=== PATIENT | male | born 1990 | race African-American/Black ===

== ENCOUNTER 2016-09-15 12:43 | Emergency (ER) | payer SELFPAY ==
[~2016-09-15] VITALS: Ht 177.8 cm; Wt 70.0 kg
[2016-09-15 12:53] VITALS: BP 158/82; PULSE 86; RESP 18; TEMP 98.1; O2SAT 97
[2016-09-15] MEDS ORDERED: SODIUM CHLORIDE 0.9% FLUSH 10 ML FLUSH IVF PRN (13:00)
--- NOTE | 2016-09-15 13:04 | PD ---
HPI Chief Complaint: Seizure Time Seen by Provider: 13:03 Travel History International Travel<30 days: No Contact w/Intl Traveler<30days: No Traveled to known affect area: No History of Present Illness HPI 26 year old male presents to the emergency department via EMS for evaluation after [place]. The patient states that he had history of febrile seizures as a child. He also states he had a seizure 3 years ago. He states he has never seen a neurologist or been on seizure medications. The patient states that it was a witnessed seizure. He does not know how long it lasted. The patient does report tongue biting. He is unsure of he had incontinence due to being wet from the beach. The patient reports headache, 4 out of 10 at this time. He denies any chest pain or shortness breath. No abdominal pain. No nausea or vomiting. No weakness. Patient reports no other medical problems. He is not currently on any medications. He does report drinking "a pint" of alcohol every 2-3 days. He also states that he smokes marijuana daily. He denies any IVDU. No fevers. No cough or congestion. Patient does report "a couple of uncles " that have history of seizures as well. He denies recently quitting alcohol. PFSH Past Medical History Seizures: Yes ?: Not Social History Alcohol Use: Yes (0.5 pints a day) Tobacco Use: Yes (0.5 ppd) Substance Use: Yes (THC daily if not weekly) Allergies-Medications (Allergen,Severity, Reaction): Coded Allergies: Amoxicillin (Verified Allergy, Unknown, 09/15/16) Review of Systems Except as stated in HPI: all other systems reviewed are Neg Physical Exam Narrative GENERAL: Well-nourished, well-developed male patient, afebrile. SKIN: Focused skin assessment warm/dry. HEAD: Normocephalic. Atraumatic. EYES: No scleral icterus. No injection or drainage. PERRLA. ENT: Mucosa pink and moist. No erythema or exudates. No uvular edema. No uvular , palatal, or tonsillar deviation. Airway patent. Nasal turbinates appear normal without nasal blood, purulent drainage or septal hematoma. NECK: Supple, trachea midline. No JVD or lymphadenopathy. Superficial laceration noted to tong as well as left inner lip. CARDIOVASCULAR: Regular rate and rhythm without murmurs, gallops, or rubs. RESPIRATORY: Breath sounds equal bilaterally. No accessory muscle use. Lungs sounds are clear to auscultation. GASTROINTESTINAL: Abdomen soft, non-tender, nondistended. MUSCULOSKELETAL: No cyanosis, or edema. Bilateral upper and lower extremity strength 5/5. All extremities are neurovascularly intact. BACK: Nontender without obvious deformity. No CVA tenderness. NEUROLOGICAL: Awake and alert. Cranial nerves II through XII intact. Motor and sensory grossly within normal limits. Five out of 5 muscle strength in all muscle groups. Normal speech. Data Data Last Documented VS Vital Signs Date Time Temp Pulse Resp B/P Pulse Ox O2 Delivery O2 Flow Rate FiO2 09/15/16 14:42 60 18 142/79 100 Room Air 09/15/16 13:15 2 09/15/16 12:53 98.1 Orders Complete Blood Count With Diff (09/15/16 12:59) Alcohol (Ethanol) (09/15/16 12:59) Drug Screen, Random Urine (09/15/16 12:59) Electrocardiogram (09/15/16 ) Ct Brain W/O Iv Contrast(Rout) (09/15/16 ) Blood Glucose (09/15/16 12:59) Ecg Monitoring (09/15/16 12:59) Iv Access Insert/Monitor (09/15/16 12:59) Oximetry (09/15/16 12:59) Comprehensive Metabolic Panel (09/15/16 12:59) Sodium Chloride 0.9% Flush (Ns Flush) (09/15/16 13:00) Creatine Kinase (Cpk) (09/15/16 13:13) Troponin I (09/15/16 13:13) Sodium Chlor 0.9% 1000 Ml Inj (Ns 1000 M (09/15/16 14:00) Labs Laboratory Tests Test 09/15/16 09/15/16 13:10 13:13 Urine Opiates Screen NEG Urine Barbiturates Screen NEG Urine Amphetamines Screen NEG Urine Benzodiazepines Screen NEG Urine Cocaine Screen NEG Urine Cannabinoids Screen POS White Blood Count 7.4 TH/MM3 Red Blood Count 5.12 MIL/MM3 Hemoglobin 14.8 GM/DL Hematocrit 44.2 % Mean Corpuscular Volume 86.4 FL Mean Corpuscular Hemoglobin 29.0 PG Mean Corpuscular Hemoglobin 33.6 % Concent Red Cell Distribution Width 14.0 % Platelet Count 210 TH/MM3 Mean Platelet Volume 9.6 FL Neutrophils (%) (Auto) 67.7 % Lymphocytes (%) (Auto) 25.5 % Monocytes (%) (Auto) 4.1 % Eosinophils (%) (Auto) 2.1 % Basophils (%) (Auto) 0.6 % Neutrophils # (Auto) 5.0 TH/MM3 Lymphocytes # (Auto) 1.9 TH/MM3 Monocytes # (Auto) 0.3 TH/MM3 Eosinophils # (Auto) 0.2 TH/MM3 Basophils # (Auto) 0.0 TH/MM3 CBC Comment DIFF FINAL Differential Comment Sodium Level 143 MEQ/L Potassium Level 4.1 MEQ/L Chloride Level 108 MEQ/L Carbon Dioxide Level 18.2 MEQ/L Anion Gap 17 MEQ/L Blood Urea Nitrogen 7 MG/DL Creatinine 1.36 MG/DL Estimat Glomerular Filtration 63 ML/MIN Rate Random Glucose 111 MG/DL Calcium Level 9.0 MG/DL Total Bilirubin 0.4 MG/DL Aspartate Amino Transf 11 U/L (AST/SGOT) Alanine Aminotransferase 19 U/L (ALT/SGPT) Alkaline Phosphatase 98 U/L Total Creatine Kinase 189 U/L Troponin I LESS THAN 0.02 NG/ML Total Protein 7.4 GM/DL Albumin 4.0 GM/DL Ethyl Alcohol Level LESS THAN 3 MG/DL MDM Medical Decision Making Medical Screen Exam Complete: Yes Emergency Medical Condition: Yes Medical Record Reviewed: Yes Interpretation(s) Last Impressions Head CT 09/15/16 0000 Signed Impressions: Service Date/Time: Thursday, September 15, 2016 13:09 - CONCLUSION: Unremarkable exam. Dami Alaniz MD Differential Diagnosis Seizure versus electrolyte abnormality versus intracranial abnormality Narrative Course 26-year-old male presents to the emergency department for evaluation after he experienced a seizure on the beach. He does report history of seizures, last time being 3 years ago. He reports minor headache at this time, otherwise states he feels normal. EKG shows early repolarization versus mild ST elevation in V2, V3, aVF, V4, V5, V6. This is most likely early repolarization. Patient is a healthy, young male with no chest pain and feels well. No cardiac history. CBC, CMP, urine drug screen, alcohol level, CK, troponin, CT of the brain are ordered and pending. CBC is unremarkable. CMP shows anion gap of 17, creatinine 1.36. CK is 189. Troponin is less than 0.02. UDS is positive for cannabinoids. Alcohol level is less than 3. CT of the brain is unremarkable. Upon reexamination, patient states he feels well and would like to go home. He is instructed to follow up with neurologist. He will be given the name and number of our neurologist on-call today. He is also instructed to not drive until he is cleared by a neurologist. He verbalizes agreement and understanding. Patient is return for any worsening symptoms. My attending physician, Dr. Chacon, examined patient has well. He agrees with plan and disposition. Diagnosis Primary Impression: Seizure Referrals: Sung Cuevas MD call for appointment Patient Instructions: General Instructions, Recurrent Seizures in Adults (ED) Additional Instructions: Follow-up with neurology. Dr. Cuevas is a neurologist on-call today. His name and number is attached this paperwork. Do not drive until cleared by neurology. Return to the emergency department for any acute worsening of symptoms. Med/Other Pt SpecificInfo: No Change to Meds Disposition: 01 DISCHARGE HOME Condition: Stable Tiffanie Garcia TERA Sep 15, 2016 13:03
[2016-09-15 13:15] VITALS: RESP 18; O2SAT 100
--- NOTE | 2016-09-15 13:25 | RADRPT ---
EXAM DATE/TIME: 09/15/2016 13:09 [facility] COMPARISON: No previous studies available for comparison. INDICATIONS : Seizure. RADIATION DOSE: 56.37 CTDIvol (mGy) MEDICAL HISTORY : Seizures. SURGICAL HISTORY : None. ENCOUNTER: Initial ACUITY: 1 day PAIN SCALE: 2/10 LOCATION: cranial TECHNIQUE: Multiple contiguous axial images were obtained of the head. Using automated exposure control and adj ustment of the mA and/or kV according to patient size, radiation dose was kept as low as reasonably a chievable to obtain optimal diagnostic quality images. FINDINGS: CEREBRUM: The ventricles are normal for age. No evidence of midline shift, mass lesion, hemorrhage or acute in farction. No extra-axial fluid collections are seen. POSTERIOR FOSSA: The cerebellum and brainstem are intact. The 4th ventricle is midline. The cerebellopontine angle i s unremarkable. EXTRACRANIAL: The visualized portion of the orbits is intact. SKULL: The calvaria is intact. No evidence of skull fracture. CONCLUSION: Unremarkable exam. Dami Alaniz MD on September 15, 2016 at 13:23 Board Certified Radiologist. This report was verified electronically.
[2016-09-15 13:27] LABS: BASOPHIL % 0.6 % (0.0-2.0); EOSINOPHIL # 0.2 TH/MM3 (0-0.4); EOSINOPHIL % 2.1 % (0.0-4.0); HEMATOCRIT 44.2 % (39.0-51.0); HEMO FLAGS DIFF FINAL; LYMPH % 25.5 % (9.0-44.0); LYMPHOCYTE # 1.9 TH/MM3 (1.0-4.8); MEAN CELL VOLUME 86.4 FL (80.0-100.0); MEAN CORPUSCULAR HGB CONC 33.6 % (32.0-36.0); MONO % 4.1 % (0.0-8.0); NEUT % 67.7 % (16.0-70.0); PLATELET COUNT 210 TH/MM3 (150-450); RED BLOOD COUNT 5.12 MIL/MM3 (4.50-5.90); WHITE BLOOD COUNT 7.4 TH/MM3 (4.0-11.0)
[2016-09-15 13:31] LABS: AMPHETAMINE, URINE NEG (NEG); BARBITURATES, URINE NEG (NEG); COCAINE, URINE NEG (NEG)
[2016-09-15 13:39] LABS: ANION GAP 17 MEQ/L (5-15)
[2016-09-15 13:42] LABS: ALKALINE PHOSPHATASE 98 U/L (45-117); ALT (GPT) 19 U/L (12-78); AST (GOT) 11 U/L (15-37); BICARBONATE 18.2 MEQ/L (21.0-32.0); BLOOD UREA NITROGEN 7 MG/DL (7-18); CHLORIDE 108 MEQ/L (98-107); CREATINE KINASE 189 U/L (39-308); GLOMERULAR FILTRATION RATE 63 ML/MIN (>89); POTASSIUM 4.1 MEQ/L (3.5-5.1); SODIUM (NA) 143 MEQ/L (136-145); TOTAL BILIRUBIN ADULT 0.4 MG/DL (0.2-1.0)
[2016-09-15] MEDS ORDERED: SODIUM CHLOR 0.9% 1000 ML INJ 1,000 ML IV ONE (14:00)
[2016-09-15 14:42] VITALS: BP 142/79; PULSE 60; RESP 18; O2SAT 100
--- NOTE | 2016-09-15 15:25 | PD ---
Data Data Last Documented VS Vital Signs Date Time Temp Pulse Resp B/P Pulse Ox O2 Delivery O2 Flow Rate FiO2 09/15/16 14:42 60 18 142/79 100 Room Air 09/15/16 13:15 2 09/15/16 12:53 98.1 Orders Complete Blood Count With Diff (09/15/16 12:59) Alcohol (Ethanol) (09/15/16 12:59) Drug Screen, Random Urine (09/15/16 12:59) Electrocardiogram (09/15/16 ) Ct Brain W/O Iv Contrast(Rout) (09/15/16 ) Blood Glucose (09/15/16 12:59) Ecg Monitoring (09/15/16 12:59) Iv Access Insert/Monitor (09/15/16 12:59) Oximetry (09/15/16 12:59) Comprehensive Metabolic Panel (09/15/16 12:59) Sodium Chloride 0.9% Flush (Ns Flush) (09/15/16 13:00) Creatine Kinase (Cpk) (09/15/16 13:13) Troponin I (09/15/16 13:13) Sodium Chlor 0.9% 1000 Ml Inj (Ns 1000 M (09/15/16 14:00) Labs Laboratory Tests Test 09/15/16 09/15/16 13:10 13:13 Urine Opiates Screen NEG Urine Barbiturates Screen NEG Urine Amphetamines Screen NEG Urine Benzodiazepines Screen NEG Urine Cocaine Screen NEG Urine Cannabinoids Screen POS White Blood Count 7.4 TH/MM3 Red Blood Count 5.12 MIL/MM3 Hemoglobin 14.8 GM/DL Hematocrit 44.2 % Mean Corpuscular Volume 86.4 FL Mean Corpuscular Hemoglobin 29.0 PG Mean Corpuscular Hemoglobin 33.6 % Concent Red Cell Distribution Width 14.0 % Platelet Count 210 TH/MM3 Mean Platelet Volume 9.6 FL Neutrophils (%) (Auto) 67.7 % Lymphocytes (%) (Auto) 25.5 % Monocytes (%) (Auto) 4.1 % Eosinophils (%) (Auto) 2.1 % Basophils (%) (Auto) 0.6 % Neutrophils # (Auto) 5.0 TH/MM3 Lymphocytes # (Auto) 1.9 TH/MM3 Monocytes # (Auto) 0.3 TH/MM3 Eosinophils # (Auto) 0.2 TH/MM3 Basophils # (Auto) 0.0 TH/MM3 CBC Comment DIFF FINAL Differential Comment Sodium Level 143 MEQ/L Potassium Level 4.1 MEQ/L Chloride Level 108 MEQ/L Carbon Dioxide Level 18.2 MEQ/L Anion Gap 17 MEQ/L Blood Urea Nitrogen 7 MG/DL Creatinine 1.36 MG/DL Estimat Glomerular Filtration 63 ML/MIN Rate Random Glucose 111 MG/DL Calcium Level 9.0 MG/DL Total Bilirubin 0.4 MG/DL Aspartate Amino Transf 11 U/L (AST/SGOT) Alanine Aminotransferase 19 U/L (ALT/SGPT) Alkaline Phosphatase 98 U/L Total Creatine Kinase 189 U/L Troponin I LESS THAN 0.02 NG/ML Total Protein 7.4 GM/DL Albumin 4.0 GM/DL Ethyl Alcohol Level LESS THAN 3 MG/DL MDM Supervised Visit with [facility]: Yes Narrative Course The history, exam, and medical decision-making in the associated mid-level provider note were completed with my assistance. I reviewed and agree with the findings presented. I attest that I had a [id number] encounter with the patient on the same day, and personally performed and documented my assessment and findings in the medical record. *My assessment and Findings: 26-year-old male with a short witnessed generalized seizure today. One previous seizure in the past. No previous evaluations. A couple uncles with a history of epilepsy. No history of headaches, has injuries, or neurosurgery. He looks well now. His workup here was negative. He'll need follow-up with neurology for further evaluation. Explicitly counseled not to drive or be in a situation where to have another seizure would be especially deleterious such as being on a ladder swimming. Diagnosis Primary Impression: Seizure Referrals: Sung Cuevas MD call for appointment Patient Instructions: General Instructions, Recurrent Seizures in Adults (ED) Departure Forms: Tests/Procedures Additional Instruction: Follow-up with neurology. Dr. Cuevas is a neurologist on-call today. His name and number is attached this paperwork. Do not drive until cleared by neurology. Return to the emergency department for any acute worsening of symptoms. Disposition: 01 DISCHARGE HOME Condition: Stable Daniel Chacon MD Sep 15, 2016 15:25
--- NOTE | 2016-09-16 10:37 | EKG ---
Date Performed: 09/15/2016 Time Performed: 12:59:11 PTAGE: 26 years EKG: Sinus rhythm POSSIBLE LEFT ATRIAL ENLARGEMENT POSSIBLE LEFT VENTRICULAR HYPERTROPHY NONSPECIFIC ST ELEVATION ABNO RMAL ECG NO PREVIOUS TRACING DOCTOR: Fartun Palomino Interpretating Date/Time 09/16/2016 10:36:27
== END 2016-09-15 15:20 | disposition home or self-care (01) ==
LOC: NEPE 12:43
DX: R56.9 Unspecified convulsions (principal); R94.31 Abnormal electrocardiogram [ECG] [EKG]
CPT/HCPCS: 70450; 80053; 80307; 82550; 84484; 85025; 93005; 99284; J7030